=== PATIENT | female | born 2000 | race Caucasian/White ===

== ENCOUNTER 2024-04-24 13:58 | Emergency (ER) | payer OTHER, SELFPAY ==
[2024-04-24 14:11] VITALS: BP 141/87; PULSE 74; RESP 16; TEMP 36.6; O2SAT 98
--- NOTE | 2024-04-24 14:34 | ED.SKABFB ---
HPI - Skin/Abscess/Foreign Bdy General Chief complaint: Skin/Abscess/Foreign Body Stated complaint: Rash on Hands Time Seen by Provider: 04/24/24 14:34 Source: patient Mode of arrival: ambulatory Limitations: no limitations History of Present Illness HPI narrative: 23 yo F presents with dry, cracking, red skin to dorsal aspects of both hands. Symptoms for approx. 1 week. Thinks she is reacting to gloves at work. Had recent vendor change. using latex free gloves. All systems reviewed and negative except as noted above. Related Data Allergies Allergy/AdvReac Type Severity Reaction Status Date / Time No Known Allergies Allergy Verified 04/24/24 14:09 Review of Systems Review of Systems: CONSTITUTIONAL: Denies fever, chills, or sweats. EYES: Denies visual changes, redness, or discharge. ENT: Denies rhinorrhea, congestion, sore throat, or otalgia. CARDIOVASCULAR: Denies chest pain, palpitations, or edema. RESPIRATORY: Denies cough or dyspnea. GASTROINTESTINAL: Denies abdominal pain, nausea, vomiting, or diarrhea. GENITOURINARY: Denies dysuria or hematuria. SKIN: Denies rash or itching. Reports dry, cracking, erythema to bilateral hands MUSCULOSKELETAL: Denies back pain, joint pain, or myalgia. NEUROLOGIC: Denies headache, numbness, or weakness. PSYCHIATRIC: Denies anxiety or depression. All other systems reviewed are negative, except as documented in HPI. PMFSH Comments At time of signature, agree with nursing past medical, surgical, social and family history. There is no relevant family history pertinent to the presenting complaint. Exam Narrative: GENERAL: This is a well-nourished, well-developed patient, in no apparent distress. HEAD: normocephalic, atraumatic. EYES: PERRL. Sclera clear/white. Vision is grossly intact. EARS: External ears normal NOSE: External nose normal NECK: Neck supple, non-tender without lymphadenopathy, masses or thyromegaly. CARDIOVASCULAR: Regular rate and rhythm without murmurs, gallops, or rubs. RESPIRATORY: Clear to auscultation. Breath sounds equal bilaterally. No wheezes, rales, or rhonchi. SKIN: warm, Dry, intact with no suspicious lesions or rash, good texture and turgor. erythema to dorsal aspect of both hands to knuckle area, cracking, scant bleeding, dry and scaly NEURO: awake, alert, and oriented to person, place and time. There were no obvious focal neurologic abnormalities. EXTREMITIES: No joint tenderness, effusion, or edema noted. Course Course Level of Care: Express Care Visit Vital Signs Vital signs: Vital Signs Temperature 36.6 C 04/24/24 14:11 Pulse Rate 74 04/24/24 14:11 Respiratory Rate 16 04/24/24 14:11 Blood Pressure 141/87 H 04/24/24 14:11 Pulse Oximetry 98 04/24/24 14:11 Oxygen Delivery Room Air 04/24/24 14:11 Temperature 36.6 C 04/24/24 14:11 Pulse Rate 74 04/24/24 14:11 Respiratory Rate 16 04/24/24 14:11 Blood Pressure 141/87 H 04/24/24 14:11 Pulse Oximetry 98 04/24/24 14:11 Oxygen Delivery Room Air 04/24/24 14:11 reviewed MDM - Skin/Abscess/Foreign Bdy MDM Narrative Medical decision making narrative: Patient is aware of diagnosis, understands and agrees to treatment plan. Anticipatory guidance given. Patient agrees to follow-up as directed and is aware of reasons to seek care at the emergency department. Portions of this record may have been created with voice recognition software dry, scaly, cracking skin, erythematous to both hands concerning for eczema/dry skin Discharge Plan Discharge Clinical Impression: Acute eczema of hand Patient Disposition: Home, Self-Care Condition: Stable Instructions: Eczema (ED) Additional Instructions: Take medications as prescribed. Apply steroid cream 2 to 3 times a day to affected area. Apply nonscented moisturizer throughout the day and especially at night. Avoid hand seat builder and wash hands with soap and water only. See your doctor if not improving. Patient Language: Omani Prescriptions: New methylprednisolone [Medrol (Apolinar)] 4 mg tablets,dose pack See Rx Instructions PO .COMPLEX Qty: 21 0RF Rx Instructions: orally per package directions triamcinolone acetonide 0.1 % cream 1 applic topical BID PRN (Reason: eczema) Qty: 30 0RF Follow-up/Referrals: PHYSICIAN,LITHOGRAPH PRESS OPERATOR [Primary Care Provider] - Stand Alone Forms: Work/School Release IP Time of Disposition: 14:45
== END 2024-04-24 14:47 | disposition home or self-care (01) ==
PROVIDERS: Emergency Provider Nurse Practitioner Family
DX: L30.9 Dermatitis, unspecified (principal)
CPT/HCPCS: 99203; G0463